=== PATIENT | female | born 1950 | race Caucasian/White ===

== ENCOUNTER → 2024-10-12 | Outpatient (CLI) | payer MEDICARE ==
--- NOTE | 2024-10-12 11:29 | XR ---
EXAMINATION TYPE: XR knee complete LT DATE OF EXAM: 10/12/2024 11:11 AM COMPARISON: None CLINICAL INDICATION: Female, 74 years old with history of M25.562 LEFT KNEE PAIN; PHH, pain TECHNIQUE: XR knee complete LT 3 views submitted. FINDINGS: No evidence of any acute osseous pathology or soft tissue swelling. Tricompartmental oste ophyte formation involving the femoral condyles, tibial plateau and patella. Severe joint space narro wing. Atherosclerosis of the arterial vasculature. IMPRESSION: 1. No acute osseous pathology. 2. Severe tricompartmental osteoarthritic changes. [facility], , 10/12/2024 11:26 AM
== END | disposition home or self-care (01) ==
LOC: RADXRMAIN 10:47
PROVIDERS: ATTEND Internal Medicine Geriatric Medicine
DX: M17.12 Unilateral primary osteoarthritis, left knee (principal)